=== PATIENT | female | born 2000 | race Two or more races ===

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

== ENCOUNTER 2021-05-29 18:49 | Emergency (ER) | payer BC, OTHER ==
[2021-05-29 19:18] VITALS: BMI 27.1
[2021-05-29] MEDS ORDERED: ONDANSETRON 4 MG/2 ML VIAL IVPUSH ONE (19:57)
[2021-05-29] MEDS ORDERED: SODIUM CHLORIDE 0.9% 500 ML INFUS.BAG IV ONE (19:57)
[2021-05-29] MEDS ORDERED: FAMOTIDINE 20 MG/50 ML IVPB 20 MG/50 ML MG IVPB ONE ×2 (20:16→20:19)
[2021-05-29 20:31] LABS: HEMATOCRIT 41.5 % (32.4-45.2); MCH 29.7 pg (25.7-33.7); MCHC 33.8 g/dl (32.0-36.0); MEAN CELL VOLUME 87.8 fl (80-96); MEAN PLT VOLUME 8.7 fl (7.5-11.1); PLATELET COUNT 325 10^3/uL (134-434); RBC 4.73 M/mm3 (3.60-5.2); RDW 13.1 % (11.6-15.6); WHITE BLOOD COUNT 16.4 K/mm3 (4.0-10.0)
[2021-05-29 21:44] LABS: ANISOCYTOSIS 0; MACROCYTOSIS 0; PLATELET ESTIMATE NORMAL
[2021-05-29 22:51] LABS: CHLORIDE 105 mmol/L (98-107); SODIUM 134 mmol/L (136-145)
[2021-05-29 22:53] LABS: ALBUMIN 4.8 g/dl (3.4-5.0); BLOOD UREA NITROGEN 8.7 mg/dL (7-18); CALCIUM 9.4 mg/dL (8.5-10.1); CO2 21 mmol/L (21-32); LIPASE 137 U/L (73-393)
[2021-05-29 22:54] LABS: GLUCOSE,RANDOM 74 mg/dL (74-106)
[2021-05-29 22:56] LABS: CREATININE 0.9 mg/dL (0.55-1.3); SGOT/AST 57 U/L (15-37)
[2021-05-29 22:58] LABS: BILIRUBIN,TOTAL 1.3 mg/dL (0.2-1); TOT PROT 9.8 g/dl (6.4-8.2)
[2021-05-29 22:59] LABS: ALK PHOS 81 U/L (45-117)
[2021-05-29 23:03] LABS: ANION GAP 8 MMOL/L (8-16); SGPT/ALT 28 U/L (13-61)
[2021-05-29 23:50] LABS: CALCIUM 8.4 mg/dL (8.5-10.1)
[2021-05-29 23:51] LABS: BLOOD UREA NITROGEN 8.9 mg/dL (7-18)
[2021-05-29 23:54] LABS: CREATININE 0.6 mg/dL (0.55-1.3)
[2021-05-30 00:25] VITALS: BP 115/76; PULSE 72; TEMP 98.3
== END 2021-05-30 00:26 | disposition home or self-care (01) ==
LOC: JER 18:49
PROC: 3E033GC Introduction of Other Therapeutic Substance into Peripheral Vein, Percutaneous Approach (ICD-10-PCS; principal; 2021-05-29)
DX: R11.2 Nausea with vomiting, unspecified (principal)
CPT/HCPCS: 36415; 80048; 80053; 83690; 84703; 85025; 99284-25

== ENCOUNTER 2021-05-30 19:18 | Emergency (ER) | payer BC, OTHER ==
[2021-05-30 19:23] VITALS: PULSE 62; BMI 23.9
[2021-05-30] MEDS ORDERED: SODIUM CHLORIDE 1,000 ML IV STA ×2 (21:03→22:33)
[2021-05-30] MEDS ORDERED: ONDANSETRON 4 MG/2 ML VIAL IVPUSH ONE (21:15)
[2021-05-30] MEDS ORDERED: ONDANSETRON 4 MG/2 ML VIAL ONE (21:15)
[2021-05-30] MEDS ORDERED: FAMOTIDINE 20 MG/50 ML IVPB 20 MG/50 ML MG IVPB ONE ×2 (21:40→21:46)
[2021-05-30 22:27] LABS: EPI CELLS >36 /uL (0-25.1); HYALINE CASTS 1 /uL (0-3.1); PH,URINE 8.5 (5.0-8.0); URINE APPEARANCE Error; URINE BACTERIA 913 /uL (0-1359); URINE BILIRUBIN NEGATIVE (NEGATIVE); URINE COLOR YELLOW; URINE GLUCOSE (UA) NEGATIVE (NEGATIVE); URINE KETONE 4+ (NEGATIVE); URINE LEUK ESTERASE TRACE (NEGATIVE); URINE NITRITE NEGATIVE (NEGATIVE); URINE PROTEIN TRACE (NEGATIVE); URINE RBC 2 /uL (0-23.9); URINE WBC 13 /uL (0-25.8)
[2021-05-30] MEDS ORDERED: METOCLOPRAMIDE HCL INJECTION 10 MG/2 ML VIAL IVPB ONE (22:37)
[2021-05-30 22:42] LABS: CALCIUM 8.7 mg/dL (8.5-10.1)
[2021-05-30 22:43] LABS: ALBUMIN 3.8 g/dl (3.4-5.0); BLOOD UREA NITROGEN 10.2 mg/dL (7-18)
[2021-05-30 22:46] LABS: CREATININE 0.7 mg/dL (0.55-1.3)
[2021-05-30 22:47] LABS: BILIRUBIN,TOTAL 2.5 mg/dL (0.2-1)
[2021-05-30] MEDS ORDERED: METOCLOPRAMIDE HCL INJECTION 10 MG/2 ML VIAL ONE (22:52)
[2021-05-30 22:54] LABS: TOT PROT 7.3 g/dl (6.4-8.2)
[2021-05-30 22:57] LABS: BASO % 0.2 % (0-2.0); EOS % 0.1 % (0-4.5); HEMATOCRIT 36.6 % (32.4-45.2); HEMOGLOBIN 12.5 GM/dL (10.7-15.3); LYMPH % 11.4 % (8-40); MCH 29.7 pg (25.7-33.7); MCHC 34.1 g/dl (32.0-36.0); MEAN CELL VOLUME 87.1 fl (80-96); MEAN PLT VOLUME 8.7 fl (7.5-11.1); MONO % 5.2 % (3.8-10.2); NEUT % 83.1 % (42.8-82.8); PLATELET COUNT 279 10^3/uL (134-434); RDW 12.5 % (11.6-15.6)
[2021-05-30] MEDS ORDERED: SUCRALFATE 1 GM TABLET (FP) ONE (23:27)
[2021-05-30] MEDS ORDERED: SUCRALFATE 1 GM TABLET (FP) PO ONE (23:31)
[2021-05-31 01:43] VITALS: BP 122/72; TEMP 98.3
== END 2021-05-31 01:47 | disposition home or self-care (01) ==
LOC: JER 19:18
PROC: 3E033GC Introduction of Other Therapeutic Substance into Peripheral Vein, Percutaneous Approach (ICD-10-PCS; principal; 2021-05-30)
DX: K29.20 Alcoholic gastritis without bleeding (principal)
CPT/HCPCS: 36415; 71046-TC-FY; 74018-TC-FY; 74177-TC; 80053; 81003; 83690; 84703; 85025; 93005; 93010; 99285-25